=== PATIENT | male | born 1995 ===

== ENCOUNTER 2017-09-05 13:25 | Emergency (ER) | payer SELFPAY ==
[2017-09-05 15:26] LABS: ABS Basophils 0.1 10^3/ul (0-0.2); ABS Eosinophils 0.2 10^3/ul (0-0.6); ABS Lymphocytes 3.1 10^3/ul (1.0-4.8); ABS Monocytes 0.5 10^3/ul (0-0.8); ABS Neutrophils 6.4 10^3/ul (1.5-7.7); ABS Nucleated RBC 0 10^3/ul; Eosinophil % 1.5 % (0-6); Hematocrit 48 % (42-52); Hemoglobin 15.9 g/dl (14.0-18.0); Lymphocyte % 30.1 % (25-47); Mean Corpuscular HGB Conc 33 g/dl (31-36); Mean Corpuscular Hemoglobin 29 pg (27-31); Mean Corpuscular Volume 88 fL (80-94); Mean Platelet Volume 8.2 um3 (7.4-10.4); Nucleated Red Blood Cells % 0; Platelet Count 240 10^3/ul (150-450); Red Blood Count 5.45 10^6/ul (4.0-5.4); Red Cell Distribution Width 14 % (10.5-15); White Blood Count 10.3 10^3/ul (3.5-10.8)
[2017-09-05 15:44] LABS: EGFR Non-African American 119.8 (>60)
[2017-09-05] MEDS ORDERED: Ibuprofen TAB* 600 MG PO ONE (16:24)
--- NOTE | 2017-09-05 17:28 | RAD ---
INDICATION: Chest pain. LEFT upper abdominal pain. COMPARISON: No relevant prior exams available on the [facility] for comparison. TECHNIQUE: Dual energy PA and routine lateral views of the chest were obtained. REPORT: Clear lungs and pleural spaces. Negative for pneumothorax. The heart, pulmonary vasculature, and mediastinal contours are unremarkable. Negative for free air beneath the diaphragm. Unremarkable osseous structures and soft tissue contours. IMPRESSION: No evidence for acute intrathoracic disease.
[2017-09-05 19:25] LABS: Urine Appearance Clear; Urine Blood Negative (Negative); Urine Color Yellow; Urine Ketones Negative (Negative); Urine Protein 1+(30 mg/dL) (Negative); Urine Red Blood Cell Absent (Absent); Urine Specific Gravity 1.024 (1.010-1.030); Urine Urobilinogen Positive (Negative); Urine White Blood Cell Absent (Absent)
[2017-09-05 21:03] VITALS: BP 131/62
--- NOTE | 2017-09-05 21:25 | ED ---
Alan Root Stephanie, scribed for Jer Hayes MD on 09/05/17 at 1625 . Abdominal Pain/Male - HPI Summary HPI Summary: The pt is a 21 y/o M presenting to the ED with c/o L sided abd pain that began last night. The pt describes his pain as a sharp pain that radiates to the lateral L side of the abd. He states that it feels like there is a ball in his abdomen. He denies nausea, dysuria or unusual BM. His symptoms are aggravated by deep breaths. - History of Current Complaint Chief Complaint: EDAbdPain Stated Complaint: ABD PAIN Time Seen by Provider: 09/05/17 15:57 Hx Obtained From: Patient, Family/Wind Turbine Engineer - a and p technician friend Onset/Duration: Sudden Onset, Lasting Hours, Still Present Timing: Constant Severity Currently: Moderate Pain Intensity: 10 Pain Scale Used: 0-10 Numeric Location: Discrete At: LLQ Radiates to: Flank - L side Character: Sharp Aggravating Factor(s): Deep Breaths Alleviating Factor(s): Nothing Associated Signs And Symptoms: Negative: Urinary Symptoms, Nausea - Allergies/Home Medications Allergies/Adverse Reactions: Allergies Allergy/AdvReac Type Severity Reaction Status Date / Time No Known Allergies Allergy Verified 09/05/17 19:07 PMH/Surg Hx/FS Hx/Imm Hx Sensory History: Denies: Hx Legally Blind EENT History: Denies: Hx Deafness - Surgical History Surgery Procedure, Year, and Place: NONE Infectious Disease History: No Infectious Disease History: Denies: Traveled Outside the [place] in Last 30 Days - Family History Known Family History: Negative: Renal Disease - Social History Occupation: Works From/At Home Lives: Alone Alcohol Use: None Hx Substance Use: No Substance Use Type: Reports: None Hx Tobacco Use: No Smoking Status (MU): Never Smoked Tobacco Have You Smoked in the Last Year: No Review of Systems Negative: Fever Gastrointestinal: Negative - unusual BM Positive: Abdominal Pain. Negative: Nausea Negative: dysuria All Other Systems Reviewed And Are Negative: Yes Physical Exam - Summary Physical Exam Summary: Appearance: The patient is well-nourished in no acute distress and in no acute pain. Skin: The skin is warm and dry and skin color reflects adequate perfusion. HEENT: The head is normocephalic and atraumatic. The pupils are equal and reactive. The conjunctivae are clear and without drainage. Nares are patent and without drainage. Mouth reveals moist mucous membranes and the throat is without erythema and exudate. The external ears are intact. The ear canals are patent and without drainage. The tympanic membranes are intact. Neck: the neck is supple with full range of motion and non-tender. There are no carotid bruits. There is no neck vein distension. Respiratory: Chest is non-tender. Lungs are clear to auscultation and breath sounds are symmetrical and equal. Cardiovascular: Heart is regular rate and rhythm. There is no murmur or rub auscultated. There is no peripheral edema and pulses are symmetrical and equal. Abdomen: The abdomen is soft and non-tender. There are normal bowel sounds heard in all four quadrants and there is no organomegaly palpated. Musculoskeletal: There is no back tenderness noted. Extremities are non-tender with full range of motion. There is good capillary refill. There is no peripheral edema or calf tenderness elicited. Neurological: Patient is alert and oriented to person, place and time. The patient has symmetrical motor strength in all four extremities. Cranial nerves are grossly intact. Deep tendon reflexes are symmetrical and equal in all four extremities. Psychiatric: The patient has an appropriate affect and does not exhibit any anxiety or depression. Triage Information Reviewed: Yes Vital Signs On Initial Exam: Initial Vitals Temp Pulse Resp BP Pulse Ox 98.7 F 71 16 133/78 98 09/05/17 13:33 09/05/17 13:33 09/05/17 13:33 09/05/17 13:33 09/05/17 13:33 Vital Signs Reviewed: Yes Diagnostics - Vital Signs Vital Signs Temp Pulse Resp BP Pulse Ox 09/05/17 14:53 97.3 F 57 15 127/67 100 09/05/17 13:33 98.7 F 71 16 133/78 98 - Laboratory Lab Results: Lab Results 09/05/17 09/05/17 09/05/17 Range/Units 15:15 15:17 15:17 WBC 10.3 (3.5-10.8) 10^3/ul RBC 5.45 H (4.0-5.4) 10^6/ul Hgb 15.9 (14.0-18.0) g/dl Hct 48 (42-52) % MCV 88 (80-94) fL MCH 29 (27-31) pg MCHC 33 (31-36) g/dl RDW 14 (10.5-15) % Plt Count 240 (150-450) 10^3/ul MPV 8.2 (7.4-10.4) um3 Neut % (Auto) 62.5 (38-83) % Lymph % (Auto) 30.1 (25-47) % [place] % (Auto) 5.0 (0-7) % Eos % (Auto) 1.5 (0-6) % Baso % (Auto) 0.9 (0-2) % Absolute Neuts (auto) 6.4 (1.5-7.7) 10^3/ul Absolute Lymphs (auto) 3.1 (1.0-4.8) 10^3/ul Absolute Monos (auto) 0.5 (0-0.8) 10^3/ul Absolute Eos (auto) 0.2 (0-0.6) 10^3/ul Absolute Basos (auto) 0.1 (0-0.2) 10^3/ul Absolute Nucleated RBC 0 10^3/ul Nucleated RBC % 0 Sodium 140 (139-145) mmol/L Potassium 4.0 (3.5-5.0) mmol/L Chloride 104 (101-111) mmol/L Carbon Dioxide 30 (22-32) mmol/L Anion Gap 6 (2-11) mmol/L BUN 14 (6-24) mg/dL Creatinine 0.82 (0.67-1.17) mg/dL Est GFR ( Amer) 154.0 (>60) Est GFR (Non-Af Amer) 119.8 (>60) BUN/Creatinine Ratio 17.1 (8-20) Glucose 93 (70-100) mg/dL Lactic Acid 0.8 (0.5-2.0) mmol/L Calcium 9.4 (8.6-10.3) mg/dL Total Bilirubin 1.00 (0.2-1.0) mg/dL AST 25 (13-39) U/L ALT 30 (7-52) U/L Alkaline Phosphatase 76 (34-104) U/L C-Reactive Protein < 1.00 (< 5.00) mg/L Total Protein 7.9 (6.4-8.9) g/dL Albumin 4.8 (3.2-5.2) g/dL Globulin 3.1 (2-4) g/dL Albumin/Globulin Ratio 1.5 (1-3) Lipase 15 (11.0-82.0) U/L Result Diagrams: 09/05/17 15:17 09/05/17 15:15 Lab Statement: Any lab studies that have been ordered have been reviewed, and results considered in the medical decision making process. - Radiology CXR Xray Interpretation: No Acute Changes Radiology Interpretation Completed By: Radiologist - No evidence for acute intrathoracic disease. ED physician has reviewed this report. Re-Evaluation - Re-Evaluation First Eval Re-Evaluation Time: 20:02 Change: Unchanged - The pt states he still has abd pain. Abdominal Pain Fem Course/Dx - Course Course Of Treatment: Mr. Dixon presented with a LUQ/left flank pain. It started about 24 hours ago and is aggravated only by breathing. His W/U was unremarkable with a negative d-dimer, no leukocytosis and WNL CXR. His abdomin was nontender to palpitation. I'm not sure what the itiology of the pain is but I don't think anything immediately dangerous is going on at this time. - Diagnoses Provider Diagnoses: Abdominal pain Discharge - Sign-Out/Discharge Documenting (check all that apply): Discharge/Admit/Transfer - Discharge - Discharge Plan Condition: Stable Disposition: HOME Prescriptions: traMADol TAB* [Ultram*] 50 mg PO Q6HR PRN #20 tab MDD 4 PRN Reason: Pain Patient Education Materials: Acute Abdominal Pain (ED) Print Language: SUDANESE [place] [facility] [place] [facility] [place]Outside] Additional Instructions: Return to the ED for any new or worsening symptoms. - Billing Disposition and Condition Condition: STABLE Disposition: HOME The documentation as recorded by the Alan frank Stephanie accurately reflects the service I personally performed and the decisions made by me, Jer Hayes MD.
== END 2017-09-05 21:03 | disposition home or self-care (01) ==
LOC: ED 13:25
DX: R10.32 Left lower quadrant pain (principal)
CPT/HCPCS: 36415; 71046; 80053; 81003; 81015; 83605; 83690; 85025; 85379; 86140; 99283; A9270-GY